=== PATIENT | female | born 1975 | race Caucasian/White ===

== ENCOUNTER → 2018-12-21 | Outpatient (CLI) | payer OTHER ==
--- NOTE | 2018-12-21 15:19 | PCVCIMAG ---
APPROVED REPORT Study performed: 12/21/2018 14:14:06 EXAM: Comprehensive 2D, Doppler, and color-flow Echocardiogram Patient Location: Echo lab Status: routine BSA: 2.28 HR: 68 bpmBP: 108/78 mmHg Rhythm: NSR Other Information Study Quality: Adequate Risk Factors: Cardiac Risk Factors: HTN, Hyperlipidemia Indications CAD Cardiomyopathy Hypertension/HDD Hx MO 2D Dimensions IVSd: 12.40 (7-11mm)LVOT Diam: 22.00 (18-24mm) LVDd: 48.92 mm PWd: 11.72 (7-11mm)Ascending Ao: 31.80 (22-36mm) LVDs: 33.82 (25-40mm) Left Atrium: 45.74 (27-40mm) Aortic Root: 33.04 mm LV Single Plane 4CH: 44.47 % LV Single Plane 2CH: 51.99 % Biplane EF: 47.3 % Volumes Left Atrial Volume (Systole) Single Plane 4CH: 116.32 mLSingle Plane 2CH: 66.48 mL LA ESV Index: 39.00 mL/m2 Aortic Valve AoV Peak Florin.: 1.17 m/s AO Peak Gr.: 5.52 mmHgLVOT Max P.36 mmHg LVOT Max V: 0.92 m/s NIDA Vmax: 2.96 cm2 Mitral Valve E/A Ratio: 0.8 MV Decel. Time: 180.08 ms MV E Max Florin.: 0.87 m/s MV A Florin.: 1.05 m/s IVRT: 65.74 ms TDI E/Lateral E': 14.50E/Medial E': 14.50 Medial E' Florin.: 0.06 m/s Lateral E' Florin.: 0.06 m/s Pulmonary Valve PV Peak Florin.: 0.92 m/sPV Peak Gr.: 3.36 mmHg ND End Vmax: 1.14 m/s Pulmonary Vein P Vein S: 0.58 m/sP Vein A: 0.28 m/s P Vein D: 0.44 m/sP Vein A Dur.: 96.9 msec P Vein S/D Ratio: 1.32 Tricuspid Valve TR Peak Florin.: 2.68 m/sRAP Estimate: 7.00 mmHg TR Peak Gr.: 28.76 mmHg PA Pressure: 36.00 mmHg Left Ventricle The left ventricle is normal size. There is hypokinesis of the distal anteroseptal, apical, and distal inferior segments. Mild concentric left ventricular hypertrophy. Left ventricular systolic function is mild to moderately decreased. LVEF is 40-45%. Mild diastolic dysfunction is present (impaired relaxation pattern). Right Ventricle The right ventricle is normal size. The right ventricular systolic function is normal. Atria Left atrium is mildly dilated. Right atrium is mildly dilated. Aortic Valve The aortic valve is normal in structure. No aortic regurgitation is present. There is no aortic valvular stenosis. Mitral Valve The mitral valve is normal in structure. Mild mitral regurgitation. No evidence of mitral valve stenosis. Tricuspid Valve The tricuspid valve is normal in structure. Mild tricuspid regurgitation. Pulmonary artery pressure is 36 mmHg. Pulmonic Valve The pulmonary valve is normal in structure. Trace pulmonic regurgitation. Great Vessels The aortic root is normal in size. The ascending aorta is normal in size. IVC is normal in size and collapses >50% with inspiration. Pericardium There is no pericardial effusion. <Conclusion> The left ventricle is normal size. Mild concentric left ventricular hypertrophy. Left ventricular systolic function is mild to moderately decreased. LVEF is 40-45%. Mild diastolic dysfunction is present (impaired relaxation pattern). The right ventricle is normal size. Left atrium is mildly dilated. The aortic valve is normal in structure. Mild mitral regurgitation. Mild tricuspid regurgitation. Pulmonary artery pressure is 36 mmHg.
== END | disposition home or self-care (01) ==
LOC: PCVCIMAG 14:14
PROVIDERS: ATTEND Internal Medicine Cardiovascular Disease
DX: I08.1 Rheumatic disorders of both mitral and tricuspid valves (principal); I25.5 Ischemic cardiomyopathy; I25.10 Atherosclerotic heart disease of native coronary artery without angina pectoris; E78.5 Hyperlipidemia, unspecified; I25.2 Old myocardial infarction; I11.9 Hypertensive heart disease without heart failure; E78.00 Pure hypercholesterolemia, unspecified; Z88.2 Allergy status to sulfonamides; Z88.0 Allergy status to penicillin; Z79.82 Long term (current) use of aspirin; Z79.899 Other long term (current) drug therapy; Z87.891 Personal history of nicotine dependence
CPT/HCPCS: 93306